=== PATIENT | female | born 1965 | race Two or more races ===

== ENCOUNTER 2024-11-13 20:14 | Inpatient (IN) | payer OTHER, MEDICAID ==
[~2024-11-13] VITALS: Ht 170.2 cm; Wt 107.3 kg
--- NOTE | 2024-11-13 20:38 | ED.PDOC ---
HPI (NEURO) HPI Comments 59y F who presents to the ED via EMS for chief complaint of seizure. Per EMS, pt was at dialysis and 2 hours into dialysis, pt had tonic clonic like seizure like activity for approx 10-15 seconds and EMS was called to the scene. Upon EMS arrival, pt was not in post-ictal state upon arrival and was able to answer all questions for EMS staff. Pt does state she has been having neck and head pain after seizure but otherwise denies any other symptoms. Pt states she does not have history of seizures and does not take any medications for it currently. Pt otherwise denies any prior seizure like activity. Pt now in the ED, alert and oriented x 4 and no noted oral trauma or incontinence is noted. Pt otherwise d enies any other symptoms at this time. Chief Complaint: Seizure Time Seen by MD: 20:34 Reviewed Notes: Nurses Notes, Charge Histotechnologist Notes, Medications, Allergies (Allergies listed above) Information Source: Patient, Emergency Med Personnel Mode of Arrival: EMS Brought in by: EMS Severity: Moderate Dizziness/Weakness Severity: Does not affect activitie Headache Severity: Moderate Timing: Hours Duration: Since onset Prehospital treatment: None Onset: At rest Circumstances: Spontaneous Symptoms: None Before: Normal During: LOC After: Normal Mentation History of: None Modifying factors: Nothing Associated Signs and Symptoms: Headache, Neck Pain Past Medical History PAST MEDICAL HISTORY: CKF, CVA, GERD Past Medical History (Other): fibromyalgia Surgical History: Unknown LAB TECHNICIAN History: Unknown Family History Family History: Unknown Social History Smoker: Non-Smoker Alcohol: Denies ETOH Use Drugs: Denies Drug Use Lives In: Home Constitutional: denies: chills, diaphoresis, fatigue, fever, malaise, sweats, weakness, others EENTM: denies: blurred vision, double vision, ear bleeding, ear discharge, ear drainage, ear pain, ear ringing, eye pain, eye redness, hearing loss, mouth pain, mouth swelling, nasal discharge, nose bleeding, nose congestion, nose pain, photophobia, tearing, throat pain, throat swelling, voice changes, others Respiratory: denies: cough, hemoptysis, orthopnea, SOB at rest, shortness of breath, SOB with excertion, stridor, wheezing, others Cardiovascular: denies: chest pain, dizzy spells, diaphoresis, Dyspnea on exertion, edema, irregular heart beat, left arm pain, lightheadedness, palpitations, PND, syncope, others Gastrointestinal: denies: abdomen distended, abdominal pain, blood streaked bowels, constipated, diarrhea, dysphagia, difficulty swallowing, hematemesis, melena, nausea, poor appetite, poor fluid intake, rectal bleeding, rectal pain, vomiting, others Genitourinary: denies: abnormal vagina bleeding, burning, dyspareunia, dysuria, flank pain, frequency, hematuria, incontinence, pain, , vagina discharge, urgency, others Neurological: reports: headache, seizure; denies: dizziness, fainting, left sided numbness, left sided weakness, numbness, paresthesia, pre-existing deficit, right sided numbness, right sided weakness, speech problems, tingling, tremors, weakness, others Musculoskeletal: reports: neck pain; denies: back pain, gout, joint pain, joint swelling, muscle pain, muscle stiffness, others Integumetry: denies: bruises, change in color, change in hair/nails, dryness, laceration, lesions, lumps, rash, wounds, others Allergic/Immunocompromised: denies: Difficulty Healing, Frequent Infections, Hives, Itching, others Hematologic/Lymphatic: denies: anemia, blood clots, easy bleeding, easy bruising, swollen glands, others Endocrine: denies: excessive hunger, excessive sweating, excessive thirst, excessive urination, flushing, intolerance to cold, intolerance to heat, unexplained weight gain, unexplained weight loss, others Psychiatric: denies: anxiety, bipolar disorder, depression, hopeless, panic disorder, schizophrenia, sleepless, suicidal, others All Other Systems: Reviewed and Negative Physical Exam General Appearance: Moderate Distress, Obese, Other (The patient remains postictal) HEENT: Normal ENT Inspection, Pharynx Normal, TMs Normal Neck: Full Range of Motion, Non-Tender, Normal, Normal Inspection Respiratory: Chest Non-Tender, Lungs Clear, No Accessory Muscle Use, No Re spiratory Distress, Normal Breath Sounds Cardiovascular: No Edema, No JVD, No Murmur, No Gallop, Normal Peripheral Pulses, Regular Rate/Rhythm Breast Exam: Deferred Gastrointestinal: No Organomegaly, Non Tender, No Pulsatile Mass, Normal Bowel Sounds, Soft Genitalia: Deferred Pelvic: Deferred Rectal: Deferred Extremities: No calf tenderness, Normal capillary refill, Normal inspection, Normal range of motion, Non-tender, No pedal edema Musculoskeletal : Apperance: Normal Neurologic: general surgeon II-XII nml as Tested, No Motor Deficits, Normal Affect, No Sensory Deficits, Other (The patient remains postictal) Cerebellar Function: Unable to Test Reflexes: Normal Skin: Dry, Normal Color, Warm Lymphatic: No Adenopathy Was a procedure done? Was a procedure done?: No Differential Diagnosis (SZ) Seizure: Psychogenic Seizure, Drug Ingestion, Hypocalcemia, Hypoglycemia, Hyponatremia, Hypoxemia, Idiopathic, Encephalopathy Headache: Migraine, Closed Head Injury, Sinusitis X-Ray, Labs, Meds, VS Vital Signs Date Time Temp Pulse Resp B/P (MAP) Pulse Ox O2 Delivery O2 Flow Rate FiO2 11/13/24 20:23 98.1 100 14 168/82 (110) 94 Lab Test 11/13/24 20:51 Range/Units White Blood Count 10.4 4.4-10.8 10^3/uL Red Blood Count 4.66 4.0-5.20 10^6/uL Hemoglobin 13.6 12.2-16.2 g/dL Hematocrit 41.2 36.0-46.0 % Mean Corpuscular Volume 88.5 80.0-100.0 fL Mean Corpuscular Hemoglobin 29.1 28.0-32.0 pg Mean Corpuscular Hemoglobin Concent 32.9 32.0-36.0 g/dL Red Cell Distribution Width 14.6 H 11.8-14.3 % Platelet Count 152 140-450 10^3/uL Mean Platelet Volume 7.3 6.9-10.8 fL Neutrophils (%) (Auto) 75.0 37.0-80.0 % Lymphocytes (%) (Auto) 16.8 10.0-50.0 % Monocytes (%) (Auto) 6.1 0.0-12.0 % Eosinophils (%) (Auto) 1.5 0.0-7.0 % Basophils (%) (Auto) 0.6 0.0-2.0 % Neutrophils # (Auto) 7.8 1.6-8.6 10 ^3/uL Lymphocytes # (Auto) 1.8 0.4-5.4 10 ^3/uL Monocytes # (Auto) 0.6 0-1.3 10 ^3/uL Eosinophils # (Auto) 0.2 0-0.8 10 ^3/uL Basophils # (Auto) 0.1 0-0.2 10 ^3/uL Nucleated Red Blood Cells 0.3 % Sodium Level 135 L 136-145 mmol/L Potassium Level 4.1 3.5-5.1 mmol/L Chloride Level 99 98-107 mmol/L Carbon Dioxide Level 24 20-31 mmol/L Anion Gap 12 5-15 Blood Urea Nitrogen 51 H 9-23 mg/dL Creatinine 3.69 H 0.550-1.02 mg/dL Glomerular Filtration Rate Calc 14 >90 mL/min BUN/Creatinine Ratio 13.8 10.0-20.0 Serum Glucose 123 H 74-106 mg/dL Calcium Level 10.0 8.7-10.4 mg/dL Total Bilirubin 0.3 0.2-1.0 mg/dL Aspartate Amino Transferase (AST) 25 13-40 U/L Alanine Aminotransferase (ALT) 14 7-40 U/L Alkaline Phosphatase 131 H 46-116 U/L Total Protein 8.3 H 5.7-8.2 g/dL Albumin 4.6 3.2-4.8 g/dL CT scan of the head is pending at this time The CBC and chemistry panel are within normal limits The patient was being admitted to the hospitalist with a diagnosis of seizures and renal failure The patient remains postictal Images Reviewed?: Images reviewed and evaluated by me Time of 1ST Reevaluation: 21:05 Reevaluation 1ST: Unchanged Patient Education/Counseling: Prognosis, Other (The patient was still remained somewhat postictal) Family Education/Counseling: No Family Present Additional Information - I reviewed the following notes from patient's past medical encounters: - The following tests were ordered, and results were reviewed by me: (Labs, X- Ray, EKG): cbc, cmp, CT head w/o contrast - Additional information was gathered from interviewing the following independent Historian: (Family, Other Providers, EMT): EMS - I reviewed and agreed with the following test results read by other provider: (X-ray, CT, US): radiologist - I discussed treatments and results with medical personnel and: (consultants, family): none Departure 1 Departure Time of Disposition: 21:52 Impression: Primary Impression: Seizure Additional Impression: Acute renal failure Qualified Codes: N17.1 - Acute kidney failure with acute cortical necrosis Disposition: ADMITTED INPATIENT Admit to: Tele Condition: Fair Critical Care Note Critical Care Time?: Yes (35 min-critical care time only) Stability Stability form required: Yes Unstable for transfer: Telemetry monitoring (Telemetry monitoring required), ED Physician Assesment (Clinical assesment) Heart Score Heart Score: Heart Score Response (Comments) Value History N/A 0 EKG N/A 0 Age N/A 0 Risk Factors N/A 0 Troponin N/A 0 Total 0 I personally scribed for CARRILLO BOOTHE MD ([email or web address]) on 11/13/24 at 20:38. Electronically submitted by Iris Armas ([email or web address]). I personally scribed for CARRILLO BOOTHE MD ([email or web address]) on 11/13/24 at 20:38. Electronically submitted by Iris Armas ([email or web address]). CARRILLO BOOTHE MD Nov 13, 2024 20:38
[2024-11-13 21:27] LABS: Basophils # (auto) 0.1 10 ^3/uL (0-0.2); Basophils % (auto) 0.6 % (0.0-2.0); Eosinophils # (auto) 0.2 10 ^3/uL (0-0.8); Eosinophils % (auto) 1.5 % (0.0-7.0); Hematocrit 41.2 % (36.0-46.0); Hemoglobin 13.6 g/dL (12.2-16.2); Lymphocytes # (auto) 1.8 10 ^3/uL (0.4-5.4); Lymphocytes % (auto) 16.8 % (10.0-50.0); Mean Corpuscular Hemoglobin 29.1 pg (28.0-32.0); Mean Corpuscular Hgb Conc. 32.9 g/dL (32.0-36.0); Mean Corpuscular Volume 88.5 fL (80.0-100.0); Monocytes # (auto) 0.6 10 ^3/uL (0-1.3); Monocytes % (auto) 6.1 % (0.0-12.0); Neutrophils # (auto) 7.8 10 ^3/uL (1.6-8.6); Nucleated Red Blood Cells % 0.3 %; Platelet Count (auto) 152 10^3/uL (140-450); Red Blood Cells 4.66 10^6/uL (4.0-5.20); Red Cell Distribution Width 14.6 % (11.8-14.3); White Blood Cell 10.4 10^3/uL (4.4-10.8)
[2024-11-13 21:44] LABS: Alanine Aminotransferase 14 U/L (7-40); Albumin 4.6 g/dL (3.2-4.8); Anion Gap 12 (5-15); Aspartate Aminotransferase 25 U/L (13-40); BUN/Creatinine Ratio 13.8 (10.0-20.0); Bilirubin, Total 0.3 mg/dL (0.2-1.0); Carbon Dioxide 24 mmol/L (20-31); Chloride 99 mmol/L (98-107); Potassium 4.1 mmol/L (3.5-5.1)
[2024-11-13 21:46] LABS: Alkaline Phosphatase 131 U/L (46-116); Blood Urea Nitrogen 51 mg/dL (9-23); Glucose 123 mg/dL (74-106); Sodium 135 mmol/L (136-145); Total Protein 8.3 g/dL (5.7-8.2)
[2024-11-13 22:55] LABS: COVID19 ANTIGEN SOFIA FIA NEGATIVE (NEGATIVE); Rapid Influenza A Negative (Negative); Rapid Influenza B Negative (Negative)
--- NOTE | 2024-11-13 22:57 | DVH ---
EXAM: CT HEAD WITHOUT CONTRAST INDICATION: seizure TECHNIQUE: CT of the head without intravenous contrast. Radiation Dose : 1. Head: CT Dose: CTDI volume is 63 mGy. Dose-length product is 1112 mGy*cm The dose indicators for CT are the volume Computed Tomography (CT) Dose Index (CTDIvol) and the Dose Length Product (DLP), and are measured in units of mGy and mGy-cm, respectively. These indicators are not patient dose, but values generated from the CT scanner acquisition factors. The report includes radiation exposure data for exposures received during this examination. COMPARISON: None FINDINGS: There is no evidence of acute intracranial hemorrhage, extra-axial collection, mass effect, midline s hift, herniation or hydrocephalus. The ventricles, sulci and cisterns are age appropriate. The claire-white differentiation is intact. Patchy periventricular and subcortical white matter hypoattenuation is nonspecific but may be related to small vessel ischemic disease. The visualized paranasal sinuses and mastoid air cells are clear. The surrounding soft tissues and osseous structures are unremarkable. IMPRESSION: No acute intracranial abnormality.
[2024-11-13] MEDS ORDERED: ACETAMINOPHEN 325 MG TAB PO PRN (23:00)
[2024-11-13] MEDS ORDERED: LORazepam 2MG/ML-1ML VIAL IV PRN (23:00)
[2024-11-13] MEDS ORDERED: ONDANSETRON HCL 4 MG/2 ML VIAL IV PRN (23:00)
[2024-11-13] MEDS ORDERED: TEMAZEPAM 15 MG CAP PO PRN (23:00)
--- NOTE | 2024-11-14 00:55 | DVHHP2 ---
History of Present Illness Reason for Visit: Seizure activity History of Present Illness 59-year-old female presents for evaluation of seizure activity. Patient was being dialyzed at home by her daughter when she was noted to be having a seizure. Daughter describes as the patient's eyes rolling backwards and shaking uncontrollably for approximately 20 seconds. Patient is currently alert oriented. Patient reports feeling dizzy prior to the episode and then does not recall what happened afterwards. No oral trauma or incontinence reported. Denies cardiac or respiratory complaints at the moment. Past Medical History End-stage renal disease, GERD, CVA Past Surgical History Dialysis access Smoke: No ALCOHOL: none Drugs: None Lives: with Family Review of Systems Review of Systems Review of systems are currently negative otherwise addressed in HPI. Allergies: Coded Allergies: Gabapentin (Verified Allergy, Unknown, 11/13/24) Prednisone (Verified Allergy, Unknown, 11/13/24) Pregabalin (Verified Allergy, Unknown, 11/13/24) Medications Current Medications Medications Dose Ordered Sig/Pérez Route Start Time Stop Time Status Last Admin Dose Admin Lorazepam 1 mg Q5MINP PRN IV 11/13/24 23:00 Temazepam 15 mg QHSP PRN PO 11/13/24 23:00 Ondansetron HCl 4 mg Q4HP PRN IV 11/13/24 23:00 Acetaminophen 650 mg Q6HP PRN PO 11/13/24 23:00 Sodium Bicarbonate 650 mg BID PO 11/14/24 10:00 UNV Trazodone HCl 50 mg HS PO 11/14/24 22:00 UNV Duloxetine HCl 30 mg DAILY PO 11/14/24 10:00 UNV Atorvastatin Calcium 40 mg HS PO 11/14/24 22:00 UNV Patient Own Medication 5 mg DAILY PO 11/14/24 10:00 UNV Clonidine HCl 0.1 mg Q6HP PRN PO 11/14/24 01:00 UNV Exam Vital Signs Vital Signs Date Time Temp Pulse Resp B/P (MAP) Pulse Ox O2 Delivery O2 Flow Rate FiO2 11/13/24 20:23 98.1 100 14 168/82 (110) 94 Exam Gen: 59-year-old female in mild distress Skin: Warm, dry, normal color and texture, no rash. HEENT: Normocephalic atraumatic, mucous membranes moist and pink. Neck: Cervical and supraclavicular nodes normal without enlargement, trachea is midline, thyroid gland is normal without masses. Pulmonary: Clear to auscultation and percussion bilaterally. Cardiac: Regular rate and rhythm. No murmur Abdomen: Soft, nontender, nondistended, bowel sounds present all 4 quadrants, no guarding, no rigidity, no organomegaly. Extremities: No cyanosis, clubbing, no edema Neuro: Cranial nerves II through XII grossly intact, normal affect and speech, no focal motor deficits. Labs/Xrays ORDERING PHYSICIAN: CARRILLO BOOTHE MD PROCEDURE(s): HWOCT - HEAD WITHOUT CONTRAST REASON: seizure ORDER NUMBER(s): [id number], ACCESSION NUMBER(s): [id number] EXAM: CT HEAD WITHOUT CONTRAST INDICATION: seizure TECHNIQUE: CT of the head without intravenous contrast. Radiation Dose : 1. Head: CT Dose: CTDI volume is 63 mGy. Dose-length product is 1112 mGy*cm The dose indicators for CT are the volume Computed Tomography (CT) Dose Index (CTDIvol) and the Dose Length Product (DLP), and are measured in units of mGy and mGy-cm, respectively. These indicators are not patient dose, but values generated from the CT scanner acquisition factors. The report includes radiation exposure data for exposures received during this examination. COMPARISON: None FINDINGS: There is no evidence of acute intracranial hemorrhage, extra-axial collection, mass effect, midline shift, herniation or hydrocephalus. The ventricles, sulci and cisterns are age appropriate. The claire-white differentiation is intact. Patchy periventricular and subcortical white matter hypoattenuation is nonspecific but may be related to small vessel ischemic disease. The visualized paranasal sinuses and mastoid air cells are clear. The surrounding soft tissues and osseous structures are unremarkable. IMPRESSION: No acute intracranial abnormality. Labs Test 11/13/24 22:00 11/13/24 20:51 Range/Units Influenza Type A Antigen Negative Negative Influenza Type B Antigen Negative Negative SARS-CoV-2 Antigen (Rapid) Negative NEGATIVE White Blood Count 10.4 4.4-10.8 10^3/uL Red Blood Count 4.66 4.0-5.20 10^6/uL Hemoglobin 13.6 12.2-16.2 g/dL Hematocrit 41.2 36.0-46.0 % Mean Corpuscular Volume 88.5 80.0-100.0 fL Mean Corpuscular Hemoglobin 29.1 28.0-32.0 pg Mean Corpuscular Hemoglobin Concent 32.9 32.0-36.0 g/dL Red Cell Distribution Width 14.6 H 11.8-14.3 % Platelet Count 152 140-450 10^3/uL Mean Platelet Volume 7.3 6.9-10.8 fL Neutrophils (%) (Auto) 75.0 37.0-80.0 % Lymphocytes (%) (Auto) 16.8 10.0-50.0 % Monocytes (%) (Auto) 6.1 0.0-12.0 % Eosinophils (%) (Auto) 1.5 0.0-7.0 % Basophils (%) (Auto) 0.6 0.0-2.0 % Neutrophils # (Auto) 7.8 1.6-8.6 10 ^3/uL Lymphocytes # (Auto) 1.8 0.4-5.4 10 ^3/uL Monocytes # (Auto) 0.6 0-1.3 10 ^3/uL Eosinophils # (Auto) 0.2 0-0.8 10 ^3/uL Basophils # (Auto) 0.1 0-0.2 10 ^3/uL Nucleated Red Blood Cells 0.3 % Sodium Level 135 L 136-145 mmol/L Potassium Level 4.1 3.5-5.1 mmol/L Chloride Level 99 98-107 mmol/L Carbon Dioxide Level 24 20-31 mmol/L Anion Gap 12 5-15 Blood Urea Nitrogen 51 H 9-23 mg/dL Creatinine 3.69 H 0.550-1.02 mg/dL Glomerular Filtration Rate Calc 14 >90 mL/min BUN/Creatinine Ratio 13.8 10.0-20.0 Serum Glucose 123 H 74-106 mg/dL Calcium Level 10.0 8.7-10.4 mg/dL Total Bilirubin 0.3 0.2-1.0 mg/dL Aspartate Amino Transferase (AST) 25 13-40 U/L Alanine Aminotransferase (ALT) 14 7-40 U/L Alkaline Phosphatase 131 H 46-116 U/L Total Protein 8.3 H 5.7-8.2 g/dL Albumin 4.6 3.2-4.8 g/dL Assessment/Plan Assessment/Plan Assessment Seizure activity, new onset End-stage renal disease, dialysis dependent Hypertension Plan Admit the patient to Med surge to the hospitalist MRI of the brain pending Neurology consultation pending Seizure precautions in place Resume home medications Continue treatment per orders. Plan discussed with: Patient My Orders Orders - ALEXY BONILLA Procedure Category Date Status Time * Neurology Consult CONS 11/13/24 Transmitted 22:48 Lorazepam 2mg/Ml Inj PHA 11/13/24 In Process (Ativan Inj) 23:00 Basic Metabolic Panel LAB 11/14/24 Logged 04:00 Seizure Precautions CRISTA 11/13/[address] 22:48 Admit ADMIT 11/13/24 Transmitted 22:48 Renal DIET 11/14/24 Transmitted Standard(2gna,3gk,Lopho) Breakfast Temazepam (Restoril) PHA 11/13/24 In Process 23:00 Ondansetron Hcl PHA 11/13/24 In Process (Zofran) 23:00 Condition: Stable CRISTA 11/13/24 In Process 22:48 Acetaminophen Tablet PHA 11/13/24 In Process (Tylenol Tablet) 23:00 Bedrest With Bathroom CRISTA 11/13/24 In Process Privileg 22:48 Sodium Bicarb Tab PHA 11/14/24 Logged 10:00 Trazodone Hcl PHA 11/14/24 Logged (Desyrel) 22:00 Duloxetine Hcl PHA 11/14/24 Logged Capsule (Cymbalta 10:00 Atorvastatin (Lipitor) PHA 11/14/24 Logged 22:00 (Nf) Bisoprolol PHA 11/14/24 Logged 10:00 Clonidine Hcl Tablet PHA 11/14/24 Logged (Catapres Tablet) 01:00 Date of Service: Nov 13, 2024 Billing Provider: ALEXY BONILLA Common Visit Codes: [id number] INP/OBS CARE (HIGH) ALEXY BONILLA Nov 14, 2024 00:55
[2024-11-14] MEDS ORDERED: cloNIDine HCL 0.1 MG TAB PO PRN (01:00)
[2024-11-14 02:16] VITALS: PULSE 92; RESP 20; O2SAT 96
[2024-11-14 03:45] VITALS: BP 109/69; PULSE 86; RESP 22; TEMP 98.6; O2SAT 97
--- NOTE | 2024-11-14 09:27 | DVHINCON2 ---
Date of service: Nov 14, 2024 Referring Physician Naresh Reason for Consultation Seizure History of Present Illness She was left AMA 11/13/24 59y F who presents to the ED via EMS for chief complaint of seizure. Per EMS, pt was at dialysis and 2 hours into dialysis, pt had tonic clonic like seizure like activity for approx 10-15 seconds and EMS was called to the scene. Upon EMS arrival, pt was not in post-ictal state upon arrival and was able to answer all questions for EMS staff. Pt does state she has been having neck and head pain after seizure but otherwise denies any other symptoms. Pt states she does not have history of seizures and does not take any medications for it currently. Pt otherwise denies any prior seizure like activity. Pt now in the ED, alert and oriented x 4 and no noted oral trauma or incontinence is noted. Pt otherwise denies any other symptoms at this time. Chief Complaint: Seizure CBC, 11/13/2024: Unremarkable BUN/CR, 11/13/2024: 51/3.69 CT head, 11/13/2024: No acute intracranial abnormality. Stroke, chronic kidney failure, GERD, fibromyalgia Unknown Unknown Unknown Unknown Allergies: Coded Allergies: Gabapentin (Verified Allergy, Unknown, 11/13/24) Prednisone (Verified Allergy, Unknown, 11/13/24) Pregabalin (Verified Allergy, Unknown, 11/13/24) Current Medications Current Medications Medications (Trade) Dose Ordered Sig/Pérez Route PRN Reason Start Time Stop Time Status Last Admin Lorazepam (Ativan Inj) 1 mg Q5MINP PRN IV SEIZURES 11/13/24 23:00 Temazepam (Restoril) 15 mg QHSP PRN PO FOR INSOMNIA 11/13/24 23:00 Ondansetron HCl (Zofran) 4 mg Q4HP PRN IV NAUSEA / VOMITING 11/13/24 23:00 Acetaminophen (Tylenol Tablet) 650 mg Q6HP PRN PO PAIN SCALE 1-3 OR TEMP>100.4 11/13/24 23:00 Sodium Bicarbonate 650 mg BID PO 11/14/24 10:00 Trazodone HCl (Desyrel) 50 mg HS PO 11/14/24 22:00 Duloxetine HCl (Cymbalta Capsule) 30 mg DAILY PO 11/14/24 10:00 Atorvastatin Calcium (Lipitor) 40 mg HS PO 11/14/24 22:00 Patient Own Medication 5 mg DAILY PO 11/14/24 10:00 11/14/24 00:56 DC Clonidine HCl (Catapres Tablet) 0.1 mg Q6HP PRN PO SBP>160 11/14/24 01:00 Atenolol (Tenormin Tablet) 50 mg DAILY PO 11/14/24 10:00 Vital Signs Vital Signs Date Time Temp Pulse Resp B/P (MAP) Pulse Ox O2 Delivery O2 Flow Rate FiO2 11/14/24 03:45 98.6 86 22 109/69 (82) 97 98.6 11/14/24 02:16 Room Air* 0 21 Labs/Diagnostic Data Labs Test 11/13/24 22:00 11/13/24 20:51 Range/Units Influenza Type A Antigen Negative Negative Influenza Type B Antigen Negative Negative SARS-CoV-2 Antigen (Rapid) Negative NEGATIVE White Blood Count 10.4 4.4-10.8 10^3/uL Red Blood Count 4.66 4.0-5.20 10^6/uL Hemoglobin 13.6 12.2-16.2 g/dL Hematocrit 41.2 36.0-46.0 % Mean Corpuscular Volume 88.5 80.0-100.0 fL Mean Corpuscular Hemoglobin 29.1 28.0-32.0 pg Mean Corpuscular Hemoglobin Concent 32.9 32.0-36.0 g/dL Red Cell Distribution Width 14.6 H 11.8-14.3 % Platelet Count 152 140-450 10^3/uL Mean Platelet Volume 7.3 6.9-10.8 fL Neutrophils (%) (Auto) 75.0 37.0-80.0 % Lymphocytes (%) (Auto) 16.8 10.0-50.0 % Monocytes (%) (Auto) 6.1 0.0-12.0 % Eosinophils (%) (Auto) 1.5 0.0-7.0 % Basophils (%) (Auto) 0.6 0.0-2.0 % Neutrophils # (Auto) 7.8 1.6-8.6 10 ^3/uL Lymphocytes # (Auto) 1.8 0.4-5.4 10 ^3/uL Monocytes # (Auto) 0.6 0-1.3 10 ^3/uL Eosinophils # (Auto) 0.2 0-0.8 10 ^3/uL Basophils # (Auto) 0.1 0-0.2 10 ^3/uL Nucleated Red Blood Cells 0.3 % Sodium Level 135 L 136-145 mmol/L Potassium Level 4.1 3.5-5.1 mmol/L Chloride Level 99 98-107 mmol/L Carbon Dioxide Level 24 20-31 mmol/L Anion Gap 12 5-15 Blood Urea Nitrogen 51 H 9-23 mg/dL Creatinine 3.69 H 0.550-1.02 mg/dL Glomerular Filtration Rate Calc 14 >90 mL/min BUN/Creatinine Ratio 13.8 10.0-20.0 Serum Glucose 123 H 74-106 mg/dL Calcium Level 10.0 8.7-10.4 mg/dL Total Bilirubin 0.3 0.2-1.0 mg/dL Aspartate Amino Transferase (AST) 25 13-40 U/L Alanine Aminotransferase (ALT) 14 7-40 U/L Alkaline Phosphatase 131 H 46-116 U/L Total Protein 8.3 H 5.7-8.2 g/dL Albumin 4.6 3.2-4.8 g/dL Plan discussed with: JOHAN Adrian MD Nov 14, 2024 09:27
[2024-11-14] MEDS ORDERED: DULoxetine HCL 30 MG CAP PO SCH (10:00)
[2024-11-14] MEDS ORDERED: BISOPROLOL 5 MG PO SCH (10:00)
[2024-11-14] MEDS ORDERED: SODIUM BICARBONATE 650 MG TAB PO SCH (10:00)
[2024-11-14] MEDS ORDERED: ATENOLOL 25 MG TAB PO SCH (10:00)
[2024-11-14] MEDS ORDERED: traZODone HCL 50 MG TAB PO SCH (22:00)
[2024-11-14] MEDS ORDERED: ATORVASTATIN 20 MG TAB PO SCH (22:00)
== END 2024-11-14 05:22 | disposition left against medical advice (07) | DRG 100 ==
LOC: EDBD 20:14 → ER 20:14 → OVERFLOW 22:48
PROVIDERS: ADMIT Nurse Practitioner Acute Care; ATTEND Nurse Practitioner Acute Care
DX: G40.409 Other generalized epilepsy and epileptic syndromes, not intractable, without status epilepticus (principal); N18.6 End stage renal disease; I12.0 Hypertensive chronic kidney disease with stage 5 chronic kidney disease or end stage renal disease; Z53.29 Procedure and treatment not carried out because of patient's decision for other reasons; Z20.822 Contact with and (suspected) exposure to COVID-19; K21.9 Gastro-esophageal reflux disease without esophagitis; Z86.73 Personal history of transient ischemic attack (TIA), and cerebral infarction without residual deficits; Z99.2 Dependence on renal dialysis; Z79.899 Other long term (current) drug therapy
CPT/HCPCS: 36415; 70450; 80053; 85025; 87426; 87804; 99291; G0378